=== PATIENT | male | born 1970 | race Caucasian/White ===

== ENCOUNTER → 2016-04-12 | Outpatient (CLI) | payer OTHER ==
[~2016-04-12] MED LIST: CHOL100013 PO; DIVA500T9 PO; IBUP-1060 PO; IOHEXOL 300 MG/ML 50 ML VIAL. IT ONE; LIDOCAINE 1% Multi-Dose 20 ML VIAL. ID ONE; SILD50TA PO
--- NOTE | 2016-04-12 11:41 | KCIC ---
PROCEDURE Fluoroscopic guided lumbar puncture for CT myelography; cervical spine CT myelogram. HISTORY Neck pain and left upper extremity numbness and paresthesia. TECHNIQUE The risks of the procedure were discussed with the patient and written and verbal consent was obtained. A time-out was performed. Fluoroscopic imaging of the lumbar spine was performed and a site overlying L3-L4 was selected for needle entry. The skin overlying this region was sterilely prepped, draped and infiltrated with 1 percent lidocaine. A 25 gauge spinal needle was then advanced into the thecal sac. Appropriate needle tip positioning was confirmed with spontaneous yield of cerebral spinal fluid within the needle hub. 12 cc Omnipaque 300 intrathecal contrast was then injected into the thecal sac. The needle was removed and a sterile bandage was placed at the needle entry site. The contrast column was then monitored to the cervical levels and multiple fluoroscopic images were obtained. Five fluoroscopic images were obtained for a total fluoroscopy time of 1 minutes and 12 seconds. The patient was transferred to the CT suite for the post injection CT portion of the exam. The patient tolerated the procedure without difficulty and was discharged in stable condition. One or more of the following individualized dose reduction techniques were utilized for this examination: 1. Automated exposure control; 2. Adjustment of the mA and/or kV according to patient size; 3. Use of iterative reconstruction technique. COMPARISON Cervical spine MRI and cervical spine radiographs dated 02/06/2016. FINDINGS There is cervical kyphosis centered at C5. There is minimal retrolisthesis of C5 on C6. There is degenerative endplate remodeling with osteophytosis and disc space narrowing predominately at this level. There is slight deformation of the ventral aspect of the spinal cord at this level. No suspicious lytic or sclerotic osseous lesion is seen. There is no fracture. The skullbase and posterior fossa are unremarkable. The lung apices are unremarkable. At C2-C3, there is endplate remodeling. There is no stenosis. At C3-C4, there is endplate remodeling. There is left uncovertebral arthropathy. There is mild left foraminal stenosis. At C4-C5, there is endplate remodeling. There is no stenosis. At C5-C6, there is a broad-based posterior disc osteophyte complex superimposed on a disc bulge and endplate remodeling. There is left greater than right uncovertebral arthropathy. There is mild right and moderate left foraminal stenosis. There is flattening of the ventral aspect of the spinal cord and mild central canal stenosis measuring 9.0 mm in anterior-posterior dimension. At C6-C7, there is a broad-based posterior disc protrusion. There is no stenosis. IMPRESSION 1. C5-C6: Broad-based posterior disc osteophyte complex superimposed on a disc bulge, endplate remodeling and left greater than right uncovertebral arthropathy. This results in mild right and moderate left foraminal stenosis and flattening of the ventral aspect of the spinal cord with mild central canal stenosis. 2. Mild degenerative change throughout the remainder of the cervical spine, described in detail above. 3. Mild cervical kyphosis centered at C5 and minimal retrolisthesis of C5 on C6. Electronically signed by: Janice Angelo (Apr 12, 2016 11:39:21)
== END | disposition home or self-care (01) ==
LOC: KCIC 08:43
PROVIDERS: ATTEND Neurological Surgery
DX: M54.12 Radiculopathy, cervical region (principal); M40.292 Other kyphosis, cervical region; M25.78 Osteophyte, vertebrae; M54.2 Cervicalgia
CPT/HCPCS: 72126; 72240; Q9967